=== PATIENT | male | born 1980 | race Caucasian/White ===

== ENCOUNTER 2021-06-30 11:56 | Emergency (ER) | payer OTHER, MEDICAID, SELFPAY ==
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
[2021-06-30 12:20] VITALS: BP 132/85; PULSE 67; RESP 20; TEMP 36.5; O2SAT 98
== END 2021-06-30 13:00 | disposition home or self-care (01) ==
PROVIDERS: Emergency Provider Registered Nurse
DX: U07.1 COVID-19 (principal); J45.909 Unspecified asthma, uncomplicated; F17.210 Nicotine dependence, cigarettes, uncomplicated
CPT/HCPCS: 87426; 99203; C9803; G0463

== ENCOUNTER 2022-03-09 10:04 | Emergency (ER) | payer OTHER, MEDICAID, SELFPAY ==
[2022-03-09 10:24] VITALS: BP 126/86; PULSE 87; RESP 18; TEMP 37; O2SAT 97
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
== END 2022-03-09 11:04 | disposition home or self-care (01) ==
PROVIDERS: Emergency Provider Nurse Practitioner Family; PCP Internal Medicine
DX: H66.002 Acute suppurative otitis media without spontaneous rupture of ear drum, left ear (principal); H60.502 Unspecified acute noninfective otitis externa, left ear; Z20.822 Contact with and (suspected) exposure to COVID-19; F17.210 Nicotine dependence, cigarettes, uncomplicated; J45.909 Unspecified asthma, uncomplicated; Z86.2 Personal history of diseases of the blood and blood-forming organs and certain disorders involving the immune mechanism
CPT/HCPCS: 87426; 99213; C9803; G0463

== ENCOUNTER 2022-04-25 13:42 | Emergency (ER) | payer OTHER, MEDICAID, SELFPAY ==
[2022-04-25 13:51] VITALS: BP 125/73; PULSE 77; RESP 18; TEMP 36.6; O2SAT 97
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
== END 2022-04-25 14:06 | disposition home or self-care (01) ==
PROVIDERS: Emergency Provider Nurse Practitioner Adult Health; PCP Internal Medicine
DX: J45.909 Unspecified asthma, uncomplicated (principal); F17.219 Nicotine dependence, cigarettes, with unspecified nicotine-induced disorders; Z86.2 Personal history of diseases of the blood and blood-forming organs and certain disorders involving the immune mechanism; Z87.898 Personal history of other specified conditions
CPT/HCPCS: 99213; G0463

== ENCOUNTER 2022-07-16 09:07 | Emergency (ER) | payer OTHER, MEDICAID, SELFPAY ==
[2022-07-16 09:18] VITALS: BP 122/75; PULSE 68; RESP 20; TEMP 36.6; O2SAT 99
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
== END 2022-07-16 10:10 | disposition home or self-care (01) ==
PROVIDERS: Emergency Provider Nurse Practitioner Family; PCP Internal Medicine
DX: B34.9 Viral infection, unspecified (principal); Z20.822 Contact with and (suspected) exposure to COVID-19; J45.909 Unspecified asthma, uncomplicated; Z86.2 Personal history of diseases of the blood and blood-forming organs and certain disorders involving the immune mechanism; F17.210 Nicotine dependence, cigarettes, uncomplicated
CPT/HCPCS: 87426; 87804; 99213; C9803; G0463

== ENCOUNTER 2022-10-03 10:55 | Emergency (ER) | payer OTHER, MEDICAID, SELFPAY ==
[2022-10-03 11:40] VITALS: BP 127/78; PULSE 59; RESP 18; TEMP 36.8; O2SAT 99
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
== END 2022-10-03 12:00 | disposition home or self-care (01) ==
PROVIDERS: Emergency Provider Nurse Practitioner Family; PCP Internal Medicine
DX: K04.7 Periapical abscess without sinus (principal); S02.5XXA Fracture of tooth (traumatic), initial encounter for closed fracture; X58.XXXA Exposure to other specified factors, initial encounter; F17.210 Nicotine dependence, cigarettes, uncomplicated; J45.909 Unspecified asthma, uncomplicated; Z86.2 Personal history of diseases of the blood and blood-forming organs and certain disorders involving the immune mechanism
CPT/HCPCS: 99213; G0463

== ENCOUNTER 2023-01-25 22:49 | Emergency (ER) | payer OTHER, MEDICAID, SELFPAY ==
[2023-01-25] VITALS (12 sets, daily range): BP systolic 81–154; BP diastolic 53–122; PULSE 80–106; RESP 14–26; TEMP 36.4; O2SAT 89–97
--- NOTE | ~2023-01-25 | XR_ITS ---
EXAMINATION: XR chest 1V portable DATE: 01/25/2023 23:16 INDICATION: Dyspnea. TECHNIQUE: A single frontal view of the chest was obtained. COMPARISON: None. FINDINGS: There is no pneumonia, pleural effusion, or pneumothorax. The heart size is normal. IMPRESSION: 1. No acute cardiopulmonary disease. Reviewed, dictated and finalized at location A.
--- NOTE | 2023-01-25 22:52 | ECG_ITS ---
Measurements Intervals [place] Rate: 85 P: 64 NH: 147 QRS: 19 QRSD: 87 T: 64 QT: 354 QTc: 421 Interpretive Statements SINUS RHYTHM NO PREVIOUS ECG AVAILABLE FOR COMPARISON Electronically Signed On 01-26-2023 14:38:07 CDT by Sy Knapp M.D.
[2023-01-25] MEDS: EPINEPHrine HCL INJ 1 MG/ML AMPUL 0.3 MG IM (23:07)
[2023-01-25] MEDS: FAMOTIDINE 20 MG/2 ML VIAL 40 MG IV PUSH (23:08)
[2023-01-25] MEDS: diphenhydrAMINE HCl INJ 50 MG/ML VIAL IV PUSH (23:08)
[2023-01-25] MEDS: SODIUM CHLORIDE 0.9% IV 2,000 ML 999 ML IV CONT (23:14)
[2023-01-25] MEDS: ALBUTEROL SULFATE NEB 2.5 MG/3 ML INH 5 MG INHALATION (23:17)
[2023-01-25] MEDS: IPRATROPIUM BR 0.02% INH SOLN 0.5 MG/2.5 ML VIAL INHALATION (23:17)
[2023-01-25 23:18] LABS: Basophils Absolute Auto 0.1 K/mm3 (0.0-0.1); Basophils Percent Auto 0.6 % (0.2-1.2); Eosinophils Absolute Auto 0.1 K/mm3 (0-0.3); Eosinophils Percent Auto 1.1 % (0-4.4); Hematocrit 49.2 % (42.0-52.0); Hemoglobin 16.8 g/dL (14.0-18.0); Immature Granulocyte Absolute 0.04 K/mm3 (0.00-0.031); Immature Granulocyte Percent A 0.5 % (0-0.5); Lymphocytes Absolute Auto 4.25 K/mm3 (0.9-3.2); Lymphocytes Percent Auto 53.7 % (18.3-44.2); Mean Corpuscular HGB Conc 34.1 g/dl (32-36); Mean Corpuscular Hemoglobin 30.2 pg (26-34); Mean Corpuscular Volume 88.3 fl (80-100); Mean Platelet Volume 11.1 fl (7.4-10.4); Monocytes Absolute Auto 0.5 K/mm3 (0.1-0.6); Monocytes Percent Auto 6.6 % (2.6-8.5); Neutrophils Percent Auto 37.5 % (45.5-73.1); Platelet Count Result 230 k/mm3 (150-375); Red Blood Count 5.57 M/mm3 (4.6-6.20); Red Cell Distribution Width 12.5 % (11.5-14.5); White Blood Count 7.9 K/mm3 (4.5-10.0)
[2023-01-25 23:28] LABS: Alanine Aminotransferase 49 U/L (6-50); Albumin Level 4.2 g/dL (3.5-5.1); Alkaline Phosphatase 65 U/L (38-126); Anion Gap 9 mmol/L (8-16); Aspartate Amino Transferase 35 U/L (17-59); Bilirubin,Total 0.5 mg/dL (0.2-1.3); Blood Urea Nitrogen 21 mg/dL (9-20); Calcium 8.9 mg/dL (8.4-10.2); Carbon Dioxide 21 mmol/L (22-30); Chloride 105 mmol/L (98-107); Estimated CRCL calculation 94 ml/min; Estimated Glomerular Filt Rate > 60; Glucose 149 mg/dL (65-110); Potassium 3.6 mmol/L (3.4-5.0); Sodium 135 mmol/L (137-145)
[2023-01-26] VITALS (15 sets, daily range): BP systolic 113–138; BP diastolic 66–75; PULSE 75–96; RESP 15–25; O2SAT 92–96
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
== END 2023-01-26 02:35 | disposition home or self-care (01) ==
PROVIDERS: Emergency Provider Emergency Medicine; PCP Internal Medicine
DX: T88.6XXA Anaphylactic reaction due to adverse effect of correct drug or medicament properly administered, initial encounter (principal); L29.9 Pruritus, unspecified; R06.02 Shortness of breath; R23.2 Flushing; R11.2 Nausea with vomiting, unspecified; R19.7 Diarrhea, unspecified; T39.315A Adverse effect of propionic acid derivatives, initial encounter; J45.909 Unspecified asthma, uncomplicated; F17.200 Nicotine dependence, unspecified, uncomplicated
CPT/HCPCS: 36415; 71045; 80053; 85025; 93005; 94640; 96361; 96372; 96374; 96375; 99284; J0171; J1100; J1200; J7030

== ENCOUNTER 2023-03-08 10:35 | Emergency (ER) | payer OTHER, MEDICAID, SELFPAY ==
[2023-03-08 10:48] VITALS: BP 114/79; PULSE 66; RESP 18; TEMP 37.2; O2SAT 98
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
== END 2023-03-08 11:10 | disposition home or self-care (01) ==
PROVIDERS: Emergency Provider Nurse Practitioner Family; PCP Internal Medicine
DX: K04.7 Periapical abscess without sinus (principal); F17.210 Nicotine dependence, cigarettes, uncomplicated
CPT/HCPCS: 99213; G0463

== ENCOUNTER 2023-08-02 16:24 | Emergency (ER) | payer OTHER, SELFPAY ==
[2023-08-02 16:25] VITALS: BP 144/75; PULSE 104; RESP 20; TEMP 38.5; O2SAT 92
[2023-08-02 17:18] LABS: Influenza A QL RT-PCR Positive (Negative); Influenza B QL RT-PCR Negative (Negative); RSV RNA, RT-PCR Negative (Negative); SARS-CoV-2 RNA PCR Negative (Negative)
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
[2023-08-02 18:00] VITALS: BP 134/89; PULSE 108; RESP 20; TEMP 37.7; O2SAT 94
== END 2023-08-02 18:04 | disposition home or self-care (01) ==
LOC: ANHED 17:40
PROVIDERS: Emergency Medicine; Emergency Provider Nurse Practitioner Family; PCP Internal Medicine
DX: J10.1 Influenza due to other identified influenza virus with other respiratory manifestations (principal); Z20.822 Contact with and (suspected) exposure to COVID-19; J45.909 Unspecified asthma, uncomplicated; F17.210 Nicotine dependence, cigarettes, uncomplicated
CPT/HCPCS: 87637; 99283

== ENCOUNTER 2023-09-15 08:13 | Emergency (ER) | payer OTHER, SELFPAY ==
[2023-09-15 08:47] VITALS: BP 123/83; PULSE 76; RESP 20; TEMP 36.9; O2SAT 94
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
== END 2023-09-15 09:32 | disposition home or self-care (01) ==
PROVIDERS: Emergency Provider Nurse Practitioner; PCP Internal Medicine
DX: J22 Unspecified acute lower respiratory infection (principal); J45.901 Unspecified asthma with (acute) exacerbation; F17.210 Nicotine dependence, cigarettes, uncomplicated; Z86.2 Personal history of diseases of the blood and blood-forming organs and certain disorders involving the immune mechanism
CPT/HCPCS: 99213; G0463

== ENCOUNTER 2024-02-07 13:01 | Emergency (ER) | payer OTHER, SELFPAY ==
--- NOTE | ~2024-02-07 | CT_ITS ---
EXAMINATION: CT cervical spine wo con DATE: 02/07/2024 14:45 INDICATION: Left arm paresthesias TECHNIQUE: Computed tomography (CT) of the cervical spine was performed without intravenous contrast. Automated exposure control and iterative reconstruction technique were employed. The dose-length pro duct was 564.24 mGy-cm. COMPARISON: None FINDINGS: There is mild reversal of the normal cervical lordosis. Vertebral body heights are normal. No fractur e. Moderate osteoarthritis at the atlantoaxial articulation. Moderate disc height loss at C4-C5 throu gh C6-C7 and mild disc height loss at C2-C3 and C3-C4. Cervical soft tissues are unremarkable. Visual ized apices of the lungs are clear. The following disc levels are specifically discussed: C2-C3: There is mild right and moderate left uncovertebral joint osteoarthritis. There is mild right and moderate left facet joint osteoarthritis. There is mild left neural foraminal stenosis. There is no central canal stenosis. C3-C4: Disc is bulging eccentric to the left. There is mild right and moderate left uncovertebral valarie nt osteoarthritis. There is moderate bilateral facet joint osteoarthritis. There is mild left neural foraminal stenosis. There is mild central canal stenosis. C4-C5: Posterior disc osteophyte complex. There is severe bilateral uncovertebral joint osteoarthriti s. There is mild bilateral facet joint osteoarthritis. There is mild to moderate bilateral neural for aminal stenosis. There is mild central canal stenosis. C5-C6: Posterior disc osteophyte complex. There is severe bilateral uncovertebral joint osteoarthriti s. There is mild to moderate bilateral facet joint osteoarthritis. There is mild to moderate bilatera l neural foraminal stenosis. There is mild central canal stenosis. C6-C7: Posterior disc osteophyte complex. There is severe bilateral uncovertebral joint osteoarthriti s. There is moderate right and [id number] left facet joint osteoarthritis. There is mild to m oderate bilateral neural foraminal stenosis. There is mild central canal stenosis. C7-T1: There is no uncovertebral joint osteoarthritis. There is moderate right and severe left facet joint osteoarthritis. There is no neural foraminal stenosis. There is no central canal stenosis. IMPRESSION: 1. Moderate cervical spondylosis. No acute osseous abnormality. Reviewed, dictated and finalized at location A.
--- NOTE | ~2024-02-07 | XR_ITS ---
XR shoulder LT min 2V 02/07/2024 14:59 INDICATION: Left shoulder pain appears lesions PROCEDURE: 4 views left shoulder COMPARISON: No prior studies for comparison. FINDINGS: Fracture, dislocation or subluxation is not identified. The soft tissues appear within norm al limits. No foreign bodies are identified. IMPRESSION: 1: NO ACUTE BONE OR JOINT ABNORMALITY IDENTIFIED. Reviewed, dictated and finalized at location B.
--- NOTE | ~2024-02-07 | US_ITS ---
EXAMINATION:US venous doppler LE RT INDICATION:Right lower extremity pain and swelling TECHNIQUE: Multiple grayscale, color flow and Doppler images of the right lower extremity deep venous systems were obtained and reviewed. COMPARISON:No prior studies for comparison. FINDINGS: The common femoral, superficial femoral and popliteal veins demonstrate normal respiratory variation, augmentation and compressibility. Color flow is also seen within the posterior tibial, pe roneal, greater saphenous and profunda veins. IMPRESSION: 1: No lower extremity deep venous thrombosis. Reviewed, dictated and finalized at location B.
[2024-02-07 13:58] VITALS: BP 144/82; PULSE 77; RESP 16; TEMP 36.8; O2SAT 95
--- NOTE | 2024-02-07 14:00 | ED.EXTPRO ---
HPI - Extremity Problem General Chief complaint: Extremity Problem,Nontraumatic <Abbie Becerra PA-C - Last Filed: 02/08/24 09:42> Stated complaint: R leg/foot pain and swelling hx of DVT <Abbie Becerra PA-C - Last Filed: 02/08/24 09:42> Time Seen by Provider: 02/07/24 14:00 <Abbie Becerra PA-C - Last Filed: 02/08/24 09:42> Focused HPI: This is a 43 year old male that presents to the ER for right lower extremity swelling and pain. Ongoing over the last couple of days. Reports history of DVT which concerned him and prompted him to be seen. Also reports he has had intermittent paresthesias in his left arm at work the last couple of days. Reports some pain in the left posterior shoulder at times. No certain injuries. Denies fevers, or erythema. GENERAL: Well-appearing, well-nourished, and in no acute distress. HEAD: Normocephalic, atraumatic. CHEST: Clear to auscultation. ?No respiratory distress. HEART: Regular rate and rhythm.? NEURO: ?Alert and oriented x3. Patient screened in triage and initial orders placed.? ?Additional care and disposition to be based upon?diagnostic testing and treatment. 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 He also complains of intermittent tingling sensation and numbness in his left upper extremity. He denies any chest pain. No history of trauma. <Augustine Bang MD - Last Filed: 02/07/24 16:48> MD Complaint: extremity pain <Augustine Bang MD - Last Filed: 02/07/24 16:48> Onset (ago): week(s) (1) <Augustine Bang MD - Last Filed: 02/07/24 16:48> Pain Consistency: intermittent <Augustine Bang MD - Last Filed: 02/07/24 16:48> Location: right <Augustine Bang MD - Last Filed: 02/07/24 16:48> Radiation: distal <Augustine Bang MD - Last Filed: 02/07/24 16:48> Relieving factors: nothing <Augustine Bang MD - Last Filed: 02/07/24 16:48> Exacerbating factors: nothing <Augustine Bang MD - Last Filed: 02/07/24 16:48> Associated symptoms: denies other symptoms <Augustine Bang MD - Last Filed: 02/07/24 16:48> Related Data Home medications: Home Medications Medication Instructions Recorded Confirmed budesonide-formoterol HFA 160 1 puff inhalation ONCE 09/15/23 09/15/23 mcg-4.5 mcg/actuation aerosol inhaler (Symbicort) <GUERO Clemens Last Filed: 02/08/24 09:42> Allergies/Adverse reactions: Allergies Allergy/AdvReac Type Severity Reaction Status Date / Time naproxen Allergy Anaphylaxis Verified 02/07/24 13:02 <Abbie Becerra PA-C - Last Filed: 02/08/24 09:42> Review of Systems Review of Systems: All systems reviewed & are unremarkable except as noted in HPI and below <Augustine Bang MD - Last Filed: 02/07/24 16:48> Constitutional: Constitutional: Reports no additional constitutional complaints <Augustine Bang MD - Last Filed: 02/07/24 16:48> Eyes: Eyes: Reports no additional eye complaints <MD Jon Mensah Last Filed: 02/07/24 16:48> ENT: Reports system reviewed and no additional complaints, except as documented <MD Jon Mensah Last Filed: 02/07/24 16:48> Cardiovascular: Cardiovascular: Reports no additional cardiovascular complaints <MD Jon Mensah Last Filed: 02/07/24 16:48> Respiratory: Respiratory: Reports no additional respiratory complaints <MD Jon Mensah Last Filed: 02/07/24 16:48> Gastrointestinal: Gastrointestinal: Reports no additional gastrointestinal complaints <Augustine Bang MD - Last Filed: 02/07/24 16:48> Musculoskeletal: Musculoskeletal: Reports as per HPI <Augustine Bang MD - Last Filed: 02/07/24 16:48> Neurologic: Reports system reviewed and no additional complaints, exc
[2024-02-07 14:50] VITALS: BP 128/88; PULSE 71; RESP 20; O2SAT 96
[2024-02-07 15:22] LABS: Basophils Absolute Auto 0.1 K/mm3 (0.0-0.1); Basophils Percent Auto 0.8 % (0.2-1.2); Eosinophils Absolute Auto 0.1 K/mm3 (0-0.3); Eosinophils Percent Auto 1.5 % (0-4.4); Hematocrit 45.7 % (42.0-52.0); Hemoglobin 15.9 g/dL (14.0-18.0); Immature Granulocyte Absolute 0.02 K/mm3 (0.00-0.031); Immature Granulocyte Percent A 0.3 % (0-0.5); Lymphocytes Absolute Auto 1.76 K/mm3 (0.9-3.2); Lymphocytes Percent Auto 26.4 % (18.3-44.2); Mean Corpuscular HGB Conc 34.8 g/dl (32-36); Mean Corpuscular Volume 89.1 fl (80-100); Mean Platelet Volume 11.4 fl (7.4-10.4); Monocytes Absolute Auto 0.5 K/mm3 (0.1-0.6); Monocytes Percent Auto 8.1 % (2.6-8.5); Neutrophils Absolute Auto 4.2 K/mm3 (1.3-6.7); Neutrophils Percent Auto 62.9 % (45.5-73.1); Platelet Count Result 164 k/mm3 (150-375); Red Blood Count 5.13 M/mm3 (4.6-6.20); Red Cell Distribution Width 12.4 % (11.5-14.5); White Blood Count 6.7 K/mm3 (4.5-10.0)
[2024-02-07 15:28] LABS: Anion Gap 9 mmol/L (4-12); Blood Urea Nitrogen 18 mg/dL (9-20); Carbon Dioxide 27 mmol/L (22-30); Chloride 101 mmol/L (98-107); Estimated CRCL calculation 98 ml/min; Estimated Glomerular Filt Rate > 60; Glucose 87 mg/dL (65-110); Potassium 3.7 mmol/L (3.4-5.0); Sodium 137 mmol/L (137-145)
[2024-02-07 15:33] LABS: Partial Thromboplastin Time 26.6 Seconds (22.3-36.8); Prothrombin Time 13.8 Seconds (11.1-14.7)
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
== END 2024-02-07 16:54 | disposition home or self-care (01) ==
PROVIDERS: Physician Assistant; Emergency Provider Family Medicine; PCP Internal Medicine
DX: R60.0 Localized edema (principal); J45.909 Unspecified asthma, uncomplicated
CPT/HCPCS: 36415; 72125; 73030; 80048; 85025; 85610; 85730; 93971; 99284

== ENCOUNTER 2024-12-25 08:04 | Emergency (ER) | payer OTHER, SELFPAY ==
--- OUTSIDE RECORDS SUMMARY | 2024-12-25 08:08 | XMS_ITS | Clinical Summary ---
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 8.5 Gram 0 Active inhalational spacing device Spacer To be used with albuterol inhaler 1 Each 0 Active cetirizine (ZyrTEC) 10 mg tablet Take 1 Tablet (10 mg) by mouth daily. 30 Tablet 1 0 Active Active Problems Problem Noted Date Diagnosed Date Tobacco use 02/09/2016 Family History Medical History Relation Name Comments Diabetes Father Diabetes Mother Relation Name Status Comments Father Mother Social History Tobacco Use Types Packs/Day Years Used Date Smoking Tobacco: Every Day Cigarettes Smokeless Tobacco: Never Alcohol Use Standard Drinks/Week Comments Yes 5 (1 standard drink = 0.6 oz pur e alcohol) drinks oacassional Sex and Gender Information Value Date Recorded Sex Assigned at Not on file Legal Sex Male 2:47 AM CDT Gender Identity Not on file Sexual Orientation Not on file Last Filed Vital Signs Vital Sign Reading Time Taken Comments Blood Pressure 142/90 04/30/2020 8:42 PM IMPLEMENTATION ADVISOR Pulse 89 04/03/2020 8:41 PM CDT Temperature 36.8 C (98.2 F) 04/30/2020 5:46 PM IMPLEMENTATION ADVISOR Respiratory Rate 18 04/30/2020 5:46 PM IMPLEMENTATION ADVISOR Oxygen Saturation 98% 04/30/2020 5:46 PM IMPLEMENTATION ADVISOR Inhaled Oxygen Concentration - - Weight 99.8 kg (220 lb) 04/30/2020 5:46 PM IMPLEMENTATION ADVISOR Height 170.2 cm (5' 7) 04/30/2020 5:46 PM IMPLEMENTATION ADVISOR Body Mass Index 34.46 04/30/2020 5:46 PM IMPLEMENTATION ADVISOR Plan of Treatment Health Maintenance Due Date Last Done Comments DTAP/TDAP/TD VACCINES (1 - Tdap) 1997 HEPATITIS B VACCINES (1 of 3 - 19+ 3-dose series) 1997 COLORECTAL SCREENING 10/01/2023 Colorectal Cancer Screening 10/01/2023 FIT-DNA Q 3 years 10/01/2023 FIT/FOBT Q 1 year 10/01/2023 Flex Sig/CT Colonography Q 5 years 10/01/2023 INFLUENZA VACCINE (#1) 2025 HPV VACCINES Aged Out No longer eligi ble based on patient's age to complete this topic Care Teams Meat Hanger Relationship Specialty Start Date End Date Ousmane Reynolds MD [address] [place] [phone] PCP - General Family Practice 02/09/16
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
[2024-12-25 08:12] VITALS: BP 119/75; PULSE 67; RESP 18; TEMP 36.7; O2SAT 96
== END 2024-12-25 08:31 | disposition home or self-care (01) ==
PROVIDERS: Emergency Provider Nurse Practitioner; Referring Provider Emergency Medicine
DX: A08.4 Viral intestinal infection, unspecified (principal); J45.909 Unspecified asthma, uncomplicated; F17.210 Nicotine dependence, cigarettes, uncomplicated
CPT/HCPCS: 82948; 99213; G0463